=== PATIENT | female | born 1980 | race Caucasian/White ===

== ENCOUNTER → 2021-01-27 12:50 | Outpatient (BNVA) | payer OTHER, SELFPAY | PROVIDERS: Visit Provider Specialist | DX: G43.711 Chronic migraine without aura, intractable, with status migrainosus (principal) | CPT/HCPCS: 64615; 99203; 99204; J0585 ==

== ENCOUNTER → 2021-05-16 10:53 | Outpatient (BNVA) | payer OTHER, SELFPAY | PROVIDERS: Visit Provider Specialist | DX: G43.709 Chronic migraine without aura, not intractable, without status migrainosus (principal) | CPT/HCPCS: 64615; J0585 ==

== ENCOUNTER 2022-01-04 10:05 | Outpatient (CLI) | payer OTHER, SELFPAY ==
--- NOTE | 2022-01-04 10:34 | XR_ITS ---
WS: [id number] XR knee RT 1-2V 70419 REASON FOR EXAM: R KNEE STRAIN FINDINGS: No fracture or focal bone lesion. Medial and lateral joint spaces are well preserved. Mild subchondral sclerosis in the medial knee itzel nt space. Mild subchondral sclerosis with small marginal osteophytes of the patella. No soft tissue abnormality XR/XR knee RT 1-2V [id number] IMPRESSION: Mild changes of osteoarthritis.
--- NOTE | 2022-01-04 10:34 | XR_ITS ---
WS: [email or web address] XR ankle LT 2V [id number] REASON FOR EXAM: L ANKLE SPRAIN FINDINGS: No fracture or focal bone lesion. Joint spaces of the left ankle are intact and relatively well-preserved. No soft tissue abnormality. XR/XR ankle LT 2V [id number] IMPRESSION: No acute abnormality.
--- NOTE | 2022-01-04 10:34 | XR_ITS ---
WS: [email or web address] XR ankle RT 2V [id number] REASON FOR EXAM: R ANKLE OSTEOCHONDRAL LESION FINDINGS: No fracture or focal bone lesion. Joint spaces of the right ankle are intact and relatively well-preserved. No soft tissue abnormality. XR/XR ankle RT 2V [id number] IMPRESSION: No acute abnormality.
--- NOTE | 2022-01-04 10:34 | XR_ITS ---
WS: [email or web address] XR lumbar spine 2-3V* [id number] REASON FOR EXAM: LOW BACK PAIN FINDINGS: Very mild rotatory scoliosis convex left on the AP view. Normal lordosis of the lumbar spine on the l ateral view. No significant vertebral body abnormality. Intervertebral disc spaces are relatively well-preserved. No spondylolisthesis or spondylolysis. XR/XR lumbar spine 2-3V* [id number] IMPRESSION: No significant abnormality.
--- NOTE | 2022-01-04 10:34 | XR_ITS ---
WS: [email or web address] XR shoulder LT min 2V* [id number] REASON FOR EXAM: L SHOULDER TENDONITIS FINDINGS: Mild narrowing of the acromioclavicular joint with mild subchondral sclerosis. Glenohumeral joint is intact and well preserved. Mild subchondral sclerosis in the biceps tuberosity at the rotator cuff tendon insertion site. No soft tissue abnormality. XR/XR shoulder LT min 2V* [id number] IMPRESSION: Minimal changes of osteoarthritis in the acromioclavicular joint. Minimal rotator cuff tendon arthropathy.
--- NOTE | 2022-01-04 14:07 | PFTS_ITS ---
Date of Study:01/04/22 Date of Dictation: 01/09/2022 MECHANICS: Prebronchodilator forced vital capacity (FVC) is normal Prebronchodilator forced expiratory volume in one second (FEV1) is normal. FEV1/FVC is normal. There is no postbronchodilator study. FLOW VOLUME LOOP: Normal . LUNG VOLUMES: Not measured DIFFUSING CAPACITY FOR CARBON MONOXIDE: Not measured INTERPRETATION: The prebronchodilator spirometry is normal. There is no postbronchodilator study. Lung volumes and gas transfer not measured. [facility]
== END 2022-01-04 10:06 | disposition home or self-care (01) ==
LOC: RT 10:06
PROVIDERS: Visit Provider Licensed Practical Nurse
DX: J42 Unspecified chronic bronchitis (principal); R06.02 Shortness of breath; M77.8 Other enthesopathies, not elsewhere classified; M19.012 Primary osteoarthritis, left shoulder; M54.50 Low back pain, unspecified; M17.11 Unilateral primary osteoarthritis, right knee; M89.571 Osteolysis, right ankle and foot; S93.402A Sprain of unspecified ligament of left ankle, initial encounter; X58.XXXA Exposure to other specified factors, initial encounter
CPT/HCPCS: 72100; 73030; 73560; 73600; 94010

== ENCOUNTER → 2023-09-21 13:38 | Outpatient (BNVA) | payer OTHER, SELFPAY | PROVIDERS: PCP Nurse Practitioner Family; Referring Provider Nurse Practitioner Family; Visit Provider Specialist | DX: G43.711 Chronic migraine without aura, intractable, with status migrainosus (principal) | CPT/HCPCS: 99204 ==

== ENCOUNTER → 2023-11-23 12:52 | Outpatient (BNVA) | payer OTHER, SELFPAY | PROVIDERS: PCP Nurse Practitioner Family; Visit Provider Specialist | DX: G43.711 Chronic migraine without aura, intractable, with status migrainosus (principal) | CPT/HCPCS: 96372; 99213 ==

== ENCOUNTER → 2023-12-24 08:59 | Outpatient (BNVA) | payer OTHER, SELFPAY | PROVIDERS: PCP Nurse Practitioner Family; Visit Provider Specialist | DX: G43.711 Chronic migraine without aura, intractable, with status migrainosus (principal) | CPT/HCPCS: 64615; J0585 ==

== ENCOUNTER → 2024-03-26 15:00 | Outpatient (BNVA) | payer OTHER, SELFPAY | PROVIDERS: PCP Nurse Practitioner Family; Visit Provider Specialist | DX: G43.711 Chronic migraine without aura, intractable, with status migrainosus (principal) | CPT/HCPCS: 64615; J0585 ==

== ENCOUNTER → 2024-06-20 08:22 | Outpatient (BNVA) | payer OTHER, SELFPAY | PROVIDERS: PCP Nurse Practitioner Family; Visit Provider Specialist | DX: G43.711 Chronic migraine without aura, intractable, with status migrainosus (principal) | CPT/HCPCS: 64615; J0585 ==

== ENCOUNTER → 2024-09-19 07:28 | Outpatient (BNVA) | payer OTHER, SELFPAY | PROVIDERS: PCP Nurse Practitioner Family; Visit Provider Specialist | DX: G43.711 Chronic migraine without aura, intractable, with status migrainosus (principal); R03.0 Elevated blood-pressure reading, without diagnosis of hypertension | CPT/HCPCS: 64615; J0585 ==

== ENCOUNTER → 2024-12-29 11:51 | Outpatient (BNVA) | payer OTHER, SELFPAY | PROVIDERS: PCP Nurse Practitioner Family; Visit Provider Specialist | DX: G43.711 Chronic migraine without aura, intractable, with status migrainosus (principal) | CPT/HCPCS: 64615; J0585; J9999 ==

== ENCOUNTER → 2025-04-16 08:04 | Outpatient (BNVA) | payer OTHER, SELFPAY | PROVIDERS: PCP Nurse Practitioner Family; Visit Provider Specialist | DX: G43.711 Chronic migraine without aura, intractable, with status migrainosus (principal); R03.0 Elevated blood-pressure reading, without diagnosis of hypertension | CPT/HCPCS: 64615; J0585; J9999 ==

== ENCOUNTER → 2025-07-16 08:43 | Outpatient (BNVA) | payer OTHER, SELFPAY | PROVIDERS: PCP Nurse Practitioner Family; Visit Provider Specialist | DX: G43.711 Chronic migraine without aura, intractable, with status migrainosus (principal) | CPT/HCPCS: 64615; J0585; J9999 ==